=== PATIENT | male | born 1995 | race Caucasian/White ===

== ENCOUNTER 2017-05-14 14:05 | Emergency (ER) | payer SELFPAY | END 2017-05-14 14:45 | disposition left against medical advice (07) | LOC: ER 14:05 | DX: R50.9 Fever, unspecified (principal); Z53.21 Procedure and treatment not carried out due to patient leaving prior to being seen by health care provider ==

== ENCOUNTER 2017-07-24 20:29 | Emergency (ER) | payer BC, MEDICAID ==
[~2017-07-24] VITALS: Ht 160 cm; Wt 73.0 kg
[2017-07-25 00:30] VITALS: BP 102/68
== END 2017-07-25 00:57 | disposition home or self-care (01) ==
LOC: ER 20:29
DX: R07.9 Chest pain, unspecified (principal)
CPT/HCPCS: 93005; 99283; Z7610